=== PATIENT | female | born 1960 | race Caucasian/White ===

== ENCOUNTER 2018-01-04 09:12 | Inpatient (IN) | payer BC ==
[2017-12-10 13:34] VITALS: Ht 154.9 cm; Wt 69.4 kg
--- NOTE | 2017-12-10 14:03 | PAT Medication Instructions ---
Service Date Dec 10, 2017. Current Home Medication List Ascorbic Acid (Vitamin C), 1,000 MG PO BID B-Complex Vitamins (Vitamin B Complex), 1 TAB PO HS Celecoxib (Celebrex), 1 CAP PO PRN Cholecalciferol (Vitamin D3), 1 TAB PO QAM Diclofenac Sodium (Topical) (Pennsaid), 2 DOSE TOP BID Fish Oil ([place]-3), 2,000 MG PO BID Folic Acid (Folvite), 1 MG PO BID Hydroxychloroquine Sulfate (Plaquenil), 300 MG PO QAM Leucovorin Calcium (Leucovorin Calcium), 25 MG PO Wednesday Methotrexate (Methotrexate), 10 MG PO WED PM Methotrexate (Methotrexate), 10 MG PO THURSAM Multiple Minerals W/ Vitamins (Calcium Citrate +), 600 MG PO QAM Niacin (Niacin), 1,000 MG PO QAM Niacin (Niacin), 500 MG PO HS Ubiquinol (Ubiquinol), 100 MG PO BID [Lortab], 7.5 MG PO PRN Medication Instructions For Your Scheduled Surgery -Contact your surgeon for instructions if you plan on taking: Celecoxib (Celebrex), 1 CAP PO PRN -Contact your bloom conveyor operator for instructions for: Hydroxychloroquine Sulfate (Plaquenil), 300 MG PO QAM Methotrexate (Methotrexate), 10 MG PO WED PM Methotrexate (Methotrexate), 10 MG PO THURSAM Leucovorin Calcium (Leucovorin Calcium), 25 MG PO Wednesday - Hold the following medications 2 weeks prior to surgery: Fish Oil ([place]-3), 2,000 MG PO BID Ubiquinol (Ubiquinol), 100 MG PO BID - Hold the following medications 24 hours prior to surgery: Diclofenac Sodium (Topical) (Pennsaid), 2 DOSE TOP BID Niacin (Niacin), 1,000 MG PO QAM Niacin (Niacin), 500 MG PO HS - Hold the following medications the morning of surgery: Ascorbic Acid (Vitamin C), 1,000 MG PO BID Cholecalciferol (Vitamin D3), 1 TAB PO QAM Multiple Minerals W/ Vitamins (Calcium Citrate +), 600 MG PO QAM Folic Acid (Folvite), 1 MG PO BID - Take the following medications the morning of surgery with a sip of water: [Lortab], 7.5 MG PO PRN (if needed) - Take the following medications as scheduled the night before surgery: Ascorbic Acid (Vitamin C), 1,000 MG PO BID B-Complex Vitamins (Vitamin B Complex), 1 TAB PO HS Folic Acid (Folvite), 1 MG PO BID [Lortab], 7.5 MG PO PRN (if needed) If you have any questions please call us at [phone] or [phone] or [phone]
--- NOTE | 2017-12-29 16:53 | HISTORY & PHYSICAL EXAMINATION ---
DATE OF ADMISSION: 01/04/2018 CHIEF COMPLAINT: Left knee pain. HISTORY OF PRESENT ILLNESS: Vicky is a 57-year-old female with a multiple year history of left knee pain. The patient rates her pain at 8/10. She has pain with her daily activities. She has limited standing and walking tolerance. Pain is worse with weightbearing. The patient has had injections in the past. She also had arthroscopy with ACL repair in 2000. The patient has failed conservative treatment and is scheduled for left a knee replacement. PAST MEDICAL HISTORY: Rheumatoid arthritis. She denies heart disease, diabetes or DVT. PAST SURGICAL HISTORY: ACL reconstruction, left side; bilateral carpal tunnel release and laparoscopic cholecystectomy. SOCIAL HISTORY: The patient drinks 1-2 drinks per week. She lives in a 1-story home. She is and works as a nurse lead case manager. FAMILY HISTORY: Negative for DVT. MEDICATIONS: Plaquenil 300 mg daily, methotrexate 20 mg weekly, leucovorin 25 mg weekly, folic acid 1 tablet b.i.d., vitamin D 1000 international units, fish oil 2000 mg b.i.d., vitamin C 1000 mg b.i.d., niacin 1000 mg daily, calcium 600 mg daily, Super B Complex, Celebrex 100 mg p.r.n., and Lortab 7.5 q. 4 hours p.r.n. ALLERGIES: None. REVIEW OF SYSTEMS: See HPI. Ten other systems reviewed, all negative. PHYSICAL EXAMINATION: VITAL SIGNS: Height 5 feet 0 inch, weight 151 pounds, and BMI 29. GENERAL: This is a well-developed and well-nourished female who is alert and oriented x3. Mood and affect are appropriate. HEENT: Normocephalic and atraumatic. Mucous membranes are moist and intact. NECK: Supple without lymphadenopathy. HEART: Regular rate and rhythm without murmurs, rubs or gallops. LUNGS: Clear to auscultation without wheezes or rhonchi. ABDOMEN: Soft and nontender. Bowel sounds are equal and active. EXTREMITIES: No ecchymosis, redness or warmth. She has an anterior scar from her previous ACL surgery. She has moderate effusion. She has varus deformity. Range of motion is from 3-100 degrees with +1 laxity. She is neurovascularly intact with +5/5 strength. X-RAY EXAMINATION: AP and lateral views show joint space narrowing and osteophyte formation. IMPRESSION: Degenerative joint disease, left knee. PLAN: The patient will be admitted for a left total knee arthroplasty. We will plan on aspirin for DVT prophylaxis. The patient will have home health for physical therapy. CHRISTIE
[~2018-01-04] VITALS: Ht 154.9 cm; Wt 69.4 kg
[2018-01-04] VITALS (8 sets, daily range): BP systolic 96–152; BP diastolic 1–85; PULSE 65–89; TEMP 36.5–36.7; O2SAT 96–99
[2018-01-04] MEDS: TRANEXAMIC ACID INJ 1,000 MG x 2 Bags IV SCH ×4 (06:30→10:40)
[~2018-01-04 09:12] MED LIST: ACETAMINOPHEN 500 MG TAB PO SCH; ASCO10003 PO; B-COTAB18 PO; BUPIVACAINE 0.5 % 5 MG/1 ML PF 10ML VIAL ONE; CEFAZOLIN 1000MG IV PUSH 7.5 ML IV SCH; CHOL1000 PO; CLB100 PO; CeleBREX 200 MG CAP PO SCH; DEXAMETHASONE 4 MG TAB PO SCH; DICL1SOL6 TOP; EpHEDrine SULFATE 50MG/5ML SYR ONE; FAMOTIDINE 20 MG TAB PO SCH; FENTANYL CITRATE INJ 50 MCG/1 ML 2 ML VIAL ONE; FOLI1TAB8 PO; GABAPENTIN 600 MG PO SCH; HYDR200T5 PO; HYDRELX3 PO; LACTATED RINGER'S 1000ML 1,000 ML IV SCH; LACTATED RINGER'S 1000ML 500 ML IV SCH; LEUC25TA2 PO; LIDOCAINE HCL 2% 2 ML VIAL (20MG/ML) ONE; METH2.5T PO; METOCLOPRAMIDE HCL 10 MG TAB PO SCH; MIDAZOLAM HCL 1 MG/ML 2ML VIAL ONE; MULT-360 PO; NIAC500T11 PO; OMEG10007 PO; PHENYLEPHRINE 100MCG/ML 5ML SYR ONE; PROPOFOL IV EMULSION 10 MG/ML 20 ML VIAL IV ONE; ROPIVACAINE 0.5% 5 MG/ML 30 ML VIAL ONE; ROPIVACAINE 5MG/ML 30 ML 150 MG, BUPIVACAINE 0.5% MPF INJ 30 ML, EpINEphrine HCL INJ 0.... INFIL SCH; UBIQ1CAP8 PO
--- NOTE | 2018-01-04 09:31 | History & Physical Bridge Note ---
H&P Re-Evaluation Bridge Note: I have examined the patient, reviewed the History & Physical and in the interval since the performance of the History & Physical I have noted the following changes of clinical significance: No changes noted
[2018-01-04] MEDS ORDERED: ATROPINE SULFATE 0.1 MG/ML 5ML SYR IV PRN (10:00)
[2018-01-04] MEDS ORDERED: EpHEDrine SULFATE INJ 50 MG/ML AMP IV PRN (10:00)
[2018-01-04] MEDS ORDERED: POVIDONE-IODINE OP SOLN 30 ML BTL ONE (10:10)
[2018-01-04] MEDS ORDERED: ORTHO JOINT ANESTHETIC ONE (10:10)
[2018-01-04] MEDS ORDERED: BACITRACIN 50000 UNIT VIAL ONE (10:10)
--- NOTE | 2018-01-04 12:01 | [facility] Operative Report ---
Operative Report Operative Date Jan 04, 2018. Pre-Operative Diagnosis Left knee degenerative joint disease Post-Operative Diagnosis Left knee degenerative joint disease Procedure(s) Performed Left total knee arthroplasty, cemented journey to patient match size 3 femur 1 tibia 11 Lakshmi [address] Meade Agile Scrum Coach Surgeon(s) Jose Lara PA-C Estimated Blood Loss 5 cc Findings Patient presents with severe end-stage truncal mild degenerative joint disease with subchondral cysts sclerosis marginal osteophytes no response to conservative therapy including anti-inflammatories relative rest activity modification injections Specimens A: Left knee bone and tissue Anesthesia Type MAC Spinal Regional Complication(s) none Disposition Recovery Room / PACU Indications Patient presents with severe end-stage chronic or mild degenerative joint disease varus alignment x-rays revealed to be evidence of subchondral cystic changes marginal osteophyte sclerosis intraoperatively patient did have evidence of obvious a previous ACL reconstruction removal plastic screw was also noted Description of Procedure After proper prepping and draping of the left lower extremity anterior midline incision was made over the region of the extensor extensor mechanism after meticulous hemostasis was obtained and maintained in subcutaneous tissues a medial parapatellar incision was made The patella was subluxed lateralward the medial lateral gutter were cleaned from any hypertrophic synovitis and scar tissue of the distal femoral block was placed and the distal femoral osteotomy cut was made subsequently the chamfers anterior and posterior osteotomy cuts were made utilizing the 4-in-1 block the tibia was subsequently subluxed anteriorward medial and ateral meniscal remnants were excised in their entirety remnants of the anterior and posterior cruciate ligaments were excised in their entirety excellent exposure of the proximal tibia was obtained the tibial osteotomy guide was placed on the proximal tibial osteotomy cut was made once again the knee was irrigated with copious amounts of sterile saline solution the patella was subsequently everted lateralward thickened scar tissue around the patella was removed the patella was subsequently cut utilizing a freehand technique and was drilled prepared for final preparation and placement of patella socially flexion-extension gaps were checked and the equal and symmetric trials were placed to the appropriate femoral and tibial trials with poly-spacer being placed for equal flexion and extension gaps and full range of motion including extension to 0 and flexion to 140 the trial components after having been taken to recovery range of motion was subsequently removed meticulous hemostasis was obtained and maintained subsequently a knee block injection of joint cocktail including ropivacaine 0.5% 150 mg. Bupivacaine 0.5 % epinephrine 1-200,030 mL's toradol 30 mg dexamethasone 4 mg ketamine 10 mg clonidine 100 micrograms normal saline solution 30 mg was infiltrated into the soft tissues of the posterior knee medial lateral gutters and periosteal synovium special attention was paid to protect neurovascular structures at all times subsequently trial components having been removed the knee was irrigated with sterile saline solution. debris was removed the proximal tibia was subsequently prepared and was made ready for the placement of the tibial component tibial component was also cemented and tamped into position the femoral component was subsequently placed and cemented in the position the patellar component was subsequently cemented in position because hemostasis once again obtained and maintained wound having been thoroughly irrigated with debridement and debridement lavage was performed as well as a medial parapatellar incision closed with #1 Vicryl in interrupted fashion subcutaneous was closed with #2 Vicryl skin was closed with skin clips. PA-C was necessary for prepping and drapping as well as wound closure of deep fascia Sub cutaneous tissue and skin and was necessary for the case. A sterile compressive dressing was placed patient was taken to recovery in stable condition of report dictated by Deshaun I attest to the content of the Intraoperative Record and any orders documented therein. Any exceptions are noted below. I attest to the content of the Intraoperative Record and any orders documented therein. Any exceptions are noted below.
[2018-01-04] MEDS ORDERED: MoRPHine SULFATE 2 MG/ML CARP IV PRN (12:45)
[2018-01-04] MEDS ORDERED: ALUMINUM/MAGNESIUM/SIMETH (MAALOX MAX) 30 ML UDC PO PRN (12:45)
[2018-01-04] MEDS ORDERED: MAGNESIUM HYDROXIDE SUSP 30 ML UDC PO PRN (12:45)
[2018-01-04] MEDS ORDERED: ONDANSETRON INJ 2 MG/ML 2 ML VIAL IV PRN (12:45)
--- NOTE | 2018-01-04 13:16 | DIAGNOSTIC IMAGING REPORT ---
L KNEE 1 OR 2 VIEWS ROUTINE HISTORY: 57 years-old Female AP/LATERAL IN PACU LEFT KNEE left knee total joint arthroplasty. Degenerative joint disease. COMPARISON: None available TECHNIQUE: 2 views of the left knee FINDINGS: Postoperative changes from recent left knee total joint arthroplasty with patellar resurfacing. Surgical drain is in place. There is expected postsurgical soft tissue swelling and deep tissue air about the knee. Alignment is satisfactory without evidence of complication. IMPRESSION: Left knee total joint arthroplasty and patellar resurfacing without complication identified. The above report was generated using voice recognition software. It may contain grammatical, syntax or spelling errors. Electronically signed by: Abdulaziz Christopher M.D. 01/04/2018 1:14 PM Dictated Date/Time: 01/04/2018 1:13 PM
--- NOTE | 2018-01-04 14:39 | Anesthesiology Progress Note ---
Anesthesia Post Op Note Date & Time Jan 04, 2018 at 14:38 Vital Signs Pain Intensity: 0.0 Vital Signs Past 12 Hours Date Time Temp Pulse Resp B/P (MAP) Pulse Ox O2 Delivery O2 Flow Rate FiO2 01/04/18 14:09 69 15 108/70 (83) 99 Nasal Cannula 2.0 01/04/18 13:40 36.5 80 16 120/76 (91) 99 Nasal Cannula 2.0 01/04/18 13:40 Nasal Cannula 2.0 01/04/18 13:40 Nasal Cannula 01/04/18 13:30 78 15 119/67 98 Nasal Cannula 2 01/04/18 13:20 36.3 77 15 120/71 98 Nasal Cannula 2 01/04/18 13:10 80 17 106/67 98 Nasal Cannula 2 01/04/18 13:00 88 14 115/69 100 Oxymask 10 01/04/18 12:50 83 13 117/58 99 Oxymask 10 01/04/18 12:43 36.1 85 19 114/56 99 Oxymask 10 01/04/18 10:37 96 Room Air 01/04/18 10:30 36.6 67 20 152/1 Notes Mental Status: alert / awake / arousable, participated in evaluation Pt Amnestic to Procedure: Yes Nausea / Vomiting: adequately controlled Pain: adequately controlled Airway Patency, RR, SpO2: stable & adequate BP & HR: stable & adequate Hydration State: stable & adequate Anesthetic Complications: no major complications apparent
[2018-01-04] MEDS: D5W AND 1/2NSS + 20MEQ KCL 1,000 ML IV SCH ×2 (15:21→23:48)
[2018-01-04] MEDS: CEFAZOLIN IV 1,000 MG in SYRINGE 0 ML IV SCH (17:43)
[2018-01-04] MEDS: FERROUS GLUCONATE 324 MG TAB PO SCH (17:43)
[2018-01-04] MEDS: TRAMADOL HCL 50 MG TAB PO PRN (18:50)
[2018-01-04] MEDS: OXYCODONE HCL IR 5 MG TAB (IMMEDIATE RELEASE) PO PRN ×2 (19:44→23:48)
[2018-01-04] MEDS ORDERED: NON-FORMULARY MEDICATION (Ubiquinol 100 MG) PO SCH (21:00)
[2018-01-04] MEDS: NIACIN 500 MG TAB IMMEDIATE RELEASE PO SCH (21:02)
[2018-01-04] MEDS: SENNA 8.6 MG TAB PO SCH (21:03)
[2018-01-04] MEDS: DOCUSATE SODIUM 100 MG CAP PO SCH (21:03)
[2018-01-04] MEDS: CeleBREX 200 MG CAP PO SCH (21:03)
[2018-01-04] MEDS: ASPIRIN 81 MG ECTAB PO SCH (21:04)
[2018-01-04] MEDS: ACETAMINOPHEN 500 MG TAB PO SCH (21:05)
[2018-01-05] VITALS (8 sets, daily range): BP systolic 95–122; BP diastolic 58–84; PULSE 62–85; TEMP 36.4–37.1; O2SAT 95–98
[2018-01-05] MEDS: CEFAZOLIN IV 1,000 MG in SYRINGE 0 ML IV SCH (01:52)
[2018-01-05] MEDS: OXYCODONE HCL IR 5 MG TAB (IMMEDIATE RELEASE) PO PRN ×3 (03:51→21:37)
[2018-01-05] MEDS: ACETAMINOPHEN 500 MG TAB PO SCH ×3 (05:41→21:34)
[2018-01-05 07:56] LABS: HEMATOCRIT 34.1 % (37-47); HEMOGLOBIN 11.4 g/dL (12.0-16.0); MEAN CELL VOLUME 91.2 fL (80-100); MEAN CORPUSCULAR HEMOGLOBIN 30.5 pg (25-34); MEAN CORPUSCULAR HGB CONC 33.4 g/dl (32-36); PLATELET COUNT 262 K/uL (130-400); RED CELL DISTRIBUTION WIDTH CV 14.7 % (11.5-14.5); RED CELL DISTRIBUTION WIDTH SD 48.8 fL (36.4-46.3); WHITE BLOOD COUNT 12.99 K/uL (4.8-10.8)
--- NOTE | 2018-01-05 08:21 | Orthopedic Progress Note ---
Orthopedic Progress Note Date of Service Jan 05, 2018. Subjective Post OP Day: 1 Reports: feeling well, Denies: chest pain, SOB, nausea / vomiting, light headedness, calf pain Objective calves soft nontender, N/V intact, capillary refill less than 2 sec., dressing C /D/I, A&O x3, toes mobile, hemovac drainage (305/225CC PER SHIFT) Date Time Temp Pulse Resp B/P (MAP) Pulse Ox O2 Delivery O2 Flow Rate FiO2 01/05/18 08:00 36.8 63 16 122/84 (97) 97 Room Air 01/05/18 07:50 Room Air 01/05/18 03:39 36.5 63 15 114/64 (81) 95 Room Air 01/05/18 00:04 36.4 62 14 119/58 (78) 96 Room Air 01/04/18 23:25 Room Air 01/04/18 18:50 36.7 89 16 148/82 (104) 97 Room Air 01/04/18 16:38 80 16 114/66 (82) 99 Nasal Cannula 2.0 01/04/18 15:40 65 16 96/59 (71) 99 Nasal Cannula 2.0 01/04/18 15:22 Room Air 01/04/18 14:40 77 16 143/85 (104) 99 Nasal Cannula 2.0 01/04/18 14:09 69 15 108/70 (83) 99 Nasal Cannula 2.0 01/04/18 13:40 36.5 80 16 120/76 (91) 99 Nasal Cannula 2.0 01/04/18 13:40 Nasal Cannula 2.0 01/04/18 13:40 Nasal Cannula 01/04/18 13:30 78 15 119/67 98 Nasal Cannula 2 01/04/18 13:20 36.3 77 15 120/71 98 Nasal Cannula 2 01/04/18 13:10 80 17 106/67 98 Nasal Cannula 2 01/04/18 13:00 88 14 115/69 100 Oxymask 10 01/04/18 12:50 83 13 117/58 99 Oxymask 10 01/04/18 12:43 36.1 85 19 114/56 99 Oxymask 10 01/04/18 10:37 96 Room Air 01/04/18 10:30 36.6 67 20 152/1 Laboratory Results 24 Hours: Test 01/05/18 07:44 Hematocrit 34.1 % Hemoglobin 11.4 g/dL Assessment & Plan Assessment: POD#1 SP LEFT TKA Plan: PT/OT DVT PROPH- ASA 81MG BID PAIN MANAGEMENT- KARI, TYLENOL, CELEBREX DC PLANNING- DC WEDNESDAY WITH DC DRESSING/DRAIN IN AM
[2018-01-05 08:32] LABS: CALCIUM 8.4 mg/dl (8.5-10.1); CREATININE 0.6 mg/dl (0.60-1.20)
[2018-01-05] MEDS: FERROUS GLUCONATE 324 MG TAB PO SCH ×3 (09:04→17:57)
[2018-01-05] MEDS: MULTIVITAMIN TAB PO SCH (09:05)
[2018-01-05] MEDS: DOCUSATE SODIUM 100 MG CAP PO SCH ×2 (09:05→21:32)
[2018-01-05] MEDS: CeleBREX 200 MG CAP PO SCH ×2 (09:05→21:33)
[2018-01-05] MEDS: ASPIRIN 81 MG ECTAB PO SCH ×2 (09:05→21:33)
[2018-01-05] MEDS: D5W AND 1/2NSS + 20MEQ KCL 1,000 ML IV SCH (09:06)
--- NOTE | 2018-01-05 09:12 | Discharge Instructions ---
Discharge Instructions Date of Service Jan 05, 2018. Admission Reason for Admission: Left Knee Osteoarthritis Discharge Discharge Diagnosis / Problem: Left total knee replacement Discharge Goals Goal(s): Decrease discomfort, Improve function, Increase independence Activity Recommendations Activity Limitations: as noted below Weightbearing Status: Left weightbearing (as tolerated) . Instructions / Follow-Up Instructions / Follow-Up ACTIVITY RECOMMENDATIONS: SELF CARE INSTRUCTIONS AFTER TOTAL KNEE REPLACEMENT A. You may need to continue a physical therapy program after discharge from the hospital. There are several options available to you. Your doctor will assist you in selecting the best one for you. 1. An out-patient facility 2 to 3 times a week for therapy or home therapy. 2. Continue working on all exercises taught to you in the hospital. Your goals should be to increase bending of your knee to 90 degrees and beyond and to fully straighten your knee. B. You may progress at your own pace from walking with a walker or crutches to a cane; then to no assistive devices. C. Make walking a part of your daily routine. Be up as much as comfortable with rest periods throughout the day. Rest with leg elevation is very important. Use the ice wrap frequently for the first 3-4 weeks. D. There are no restrictions on activities. You may ride in a car, shop, participate in metal room dental technician and all social activities. E. Wear the long elastic stockings (KOFI hose) 20 hours a day for 2 weeks after surgery. They can be removed several times a day for laundering and for a bath. F. You may shower, no tub baths until cleared by your doctor. SPECIAL CARE INSTRUCTIONS: VERY IMPORTANT TO READ AND REVIEW A. There are a few signs you need to watch for after you are home. Call [facility] if you notice any of the followin. Increased severe knee pain. Some pain is expected especially when you exercise. 2. Increased swelling in your leg or knee; pain or swelling of the calf muscle in either lower leg. 3. Any fluid drainage from the incision. 4. Shortness of breath or chest pain. B. Please call [facility] at if you have any concerns or questions about your operation or recovery. The doctor or his nurse will return your call promptly. C. You must take antibiotics before dental work, bladder, bowel or other surgery. Your doctor will provide you with a permanent care to carry describing this precaution. IMPORTANT: * REMEMBER TO TAKE ASPIRIN, 81 MG, TWICE DAILY FOR 4 WEEKS UNLESS OTHERWISE DIRECTED. THIS IS YOUR BLOOD THINNER. * HIGH RISK PATIENTS MAY BE PRESCRIBED A STRONGER BLOOD THINNER. THIS WILL BE PROVIDED AT DISCHARGE. * CALL IF INCREASED PAIN, REDNESS, DRAINAGE OR FEVER GREATER THAT 101. * WEAR KOFI HOSE 20 HOURS PER DAY FOR 2 WEEKS. * DERMABOND Prineo- This is a mesh tape dressing that is covered with glue. It should remain in place until the incision is properly healed, usually 10-14 days. This dressing is designed to naturally slough off. You may trim the excess mesh tape as it peels off. Incision may be briefly wet in a shower. Dry immediately by blotting with a clean, dry towel. Do not bath or swim until instructed by your doctor. Do not scratch, rub, or pick at the dressing. Do not apply any topical ointments or lotions until dressing is completely removed and/or instructed by your doctor. There may be a small piece of suture material at one end of your incision. Do not pull or trim this. If it is bothersome or catching on clothing, you may cover it with a band-aid. FOLLOW UP VISIT: If appointment is not already scheduled: Please call [facility] to make a follow-up appointment for 2 weeks after your surgery at . Current Hospital Diet Patient's current hospital diet: Regular Diet Discharge Diet Recommended Diet: Regular Diet Procedures Procedures Performed: Left total knee arthroplasty, cemented journey to patient match size 3 femur 1 tibia 11 Lakshmi 29 oval patella Pending Studies Studies pending at discharge: no Medical Emergencies . Who to Call and When: Medical Emergencies: If at any time you feel your situation is an emergency, please call 911 immediately. . Non-Emergent Contact Non-Emergency issues call your: Primary Care Provider, Surgeon . "Provider Documentation" section prepared by Anmol Abarca. . [place] Drug Monitoring Program Search Results: patient reviewed within database, no issues identified
--- NOTE | 2018-01-05 10:58 | Anesthesiology Progress Note ---
Anesthesia Post Op Note Date & Time Jan 05, 2018 at 10:57 Vital Signs Pain Intensity: 5.0 Vital Signs Past 12 Hours Date Time Temp Pulse Resp B/P (MAP) Pulse Ox O2 Delivery O2 Flow Rate FiO2 01/05/18 08:47 97 Room Air 01/05/18 08:00 36.8 63 16 122/84 (97) 97 Room Air 01/05/18 07:50 Room Air 01/05/18 03:39 36.5 63 15 114/64 (81) 95 Room Air 01/05/18 00:04 36.4 62 14 119/58 (78) 96 Room Air 01/04/18 23:25 Room Air Notes patient with physical therapy. sitting up in chair with PT, no s/s pain or distress noted.
[2018-01-05] MEDS: NIACIN 500 MG TAB IMMEDIATE RELEASE PO SCH ×2 (12:36→21:00)
[2018-01-05] MEDS: CHOLECALCIFEROL 1000 INTER.UNIT TAB PO SCH (12:36)
[2018-01-05] MEDS ORDERED: NURSING VERBAL MED ORDER ONE (17:00)
[2018-01-05] MEDS ORDERED: ZOLPIDEM TARTRATE 5 MG TAB PO PRN (17:15)
[2018-01-05] MEDS: SENNA 8.6 MG TAB PO SCH (21:33)
[2018-01-05] MEDS: TRAMADOL HCL 50 MG TAB PO PRN (23:20)
[2018-01-06] MEDS: ACETAMINOPHEN 500 MG TAB PO SCH (06:02)
[2018-01-06 07:11] VITALS: BP 131/77; PULSE 76; TEMP 36.6; O2SAT 97
[2018-01-06] MEDS: OXYCODONE HCL IR 5 MG TAB (IMMEDIATE RELEASE) PO PRN ×2 (07:23→11:24)
--- NOTE | 2018-01-06 07:34 | Orthopedic Progress Note ---
Orthopedic Progress Note Date of Service Jan 06, 2018. Subjective Post OP Day: 2 Reports: feeling well, pain controlled w PO medications, Denies: complaints, chest pain, SOB, nausea / vomiting, light headedness, calf pain Objective calves soft nontender, N/V intact, capillary refill less than 2 sec., incision C /D/I, A&O x3, toes mobile Date Time Temp Pulse Resp B/P (MAP) Pulse Ox O2 Delivery O2 Flow Rate FiO2 01/05/18 23:30 Room Air 01/05/18 23:29 37.1 85 16 104/61 (75) 95 Room Air 01/05/18 16:36 74 113/68 (83) 01/05/18 16:00 Room Air 01/05/18 15:16 36.8 84 18 95/58 (70) 96 Room Air 01/05/18 11:41 36.6 66 18 118/70 (86) 98 Room Air 01/05/18 08:47 97 Room Air 01/05/18 08:00 36.8 63 16 122/84 (97) 97 Room Air 01/05/18 07:50 Room Air Laboratory Results 24 Hours: Test 01/05/18 07:44 Hematocrit 34.1 % Hemoglobin 11.4 g/dL Assessment & Plan Assessment: POD#2 SP LEFT TKA Plan: PT/OT DVT PROPH- ASA 81MG BID PAIN MANAGEMENT- KARI, TYLENOL, CELEBREX DC PLANNING- DC TODAY WITH HH Discharge Planning Discharge Planning: home with home health DVT Prophylaxis: TEDs, SCDs, ASA
[2018-01-06] MEDS ORDERED: CLC100 PO (07:39)
[2018-01-06] MEDS ORDERED: ACET-24 PO (07:39)
[2018-01-06] MEDS ORDERED: ONDA-170 PO (07:39)
[2018-01-06] MEDS ORDERED: CLB200 PO (07:39)
[2018-01-06] MEDS ORDERED: ASPEC81 PO (07:39)
[2018-01-06] MEDS ORDERED: RXC5 PO (07:39)
[2018-01-06] MEDS: FERROUS GLUCONATE 324 MG TAB PO SCH (08:55)
[2018-01-06] MEDS: DOCUSATE SODIUM 100 MG CAP PO SCH (08:56)
[2018-01-06] MEDS: MULTIVITAMIN TAB PO SCH (08:56)
[2018-01-06] MEDS: CHOLECALCIFEROL 1000 INTER.UNIT TAB PO SCH (08:56)
[2018-01-06] MEDS: CeleBREX 200 MG CAP PO SCH (08:56)
[2018-01-06] MEDS: NIACIN 500 MG TAB IMMEDIATE RELEASE PO SCH (08:57)
[2018-01-06] MEDS: ASPIRIN 81 MG ECTAB PO SCH (08:57)
[2018-01-06 10:11] VITALS: BP 131/77; PULSE 76; TEMP 36.6; O2SAT 97
== END 2018-01-06 13:10 | disposition home health service (06) | DRG 470 ==
LOC: C.ACU 09:12 → C.3E 12:49 → ENRESERV 13:02
PROVIDERS: ADMIT Orthopaedic Surgery; ATTEND Orthopaedic Surgery
PROC: 0SRD0J9 Replacement of Left Knee Joint with Synthetic Substitute, Cemented, Open Approach (ICD-10-PCS; principal; 2018-01-04 11:00)
DX: M17.12 Unilateral primary osteoarthritis, left knee (principal); M06.9 Rheumatoid arthritis, unspecified; E78.5 Hyperlipidemia, unspecified; Z79.899 Other long term (current) drug therapy; Z98.890 Other specified postprocedural states; Z90.49 Acquired absence of other specified parts of digestive tract; Z87.891 Personal history of nicotine dependence